=== PATIENT | female | born 1945 | race Caucasian/White ===

== ENCOUNTER 2019-02-01 01:38 | Outpatient (CLI) | payer MEDICARE, MEDICAID ==
[~2019-02-01 01:38] MED LIST: ASPI-1264 PO; ATOR10TA70 PO; ATOR20TA66 PO; BRIM5DRO16 EACHEYE; CALC-212 PO; CLOP75TA15 PO; GLIM4TAB79 PO; LANTUS SUBCUT; METO25TA6 PO; OLME40TA14 PO; TRAV5DRO4 OP; UBID30CA11 PO
== END 2019-02-01 23:59 | disposition home or self-care (01) ==
LOC: DIABETIC 01:38
PROVIDERS: ATTEND Specialist
DX: E11.65 Type 2 diabetes mellitus with hyperglycemia (principal); Z79.4 Long term (current) use of insulin; Z79.84 Long term (current) use of oral hypoglycemic drugs; Z79.899 Other long term (current) drug therapy
CPT/HCPCS: G0108

== ENCOUNTER 2019-04-05 02:15 | Outpatient (CLI) | payer MEDICARE, MEDICAID | END 2019-04-05 23:59 | disposition home or self-care (01) | LOC: DIABETIC 02:15 | PROVIDERS: ATTEND Specialist | DX: E11.65 Type 2 diabetes mellitus with hyperglycemia (principal); I10 Essential (primary) hypertension; Z79.84 Long term (current) use of oral hypoglycemic drugs; Z79.4 Long term (current) use of insulin; Z79.899 Other long term (current) drug therapy | CPT/HCPCS: G0108 ==

== ENCOUNTER 2019-11-28 15:03 | Emergency (ER) | payer MEDICARE, MEDICAID ==
[~2019-11-28] VITALS: Ht 144.8 cm; Wt 83.2 kg
[~2019-11-28 15:03] MED LIST changes: +GLIM4TAB7 PO; -GLIM4TAB79 PO
[2019-11-28] MEDS ORDERED: TETanus/Pertussis (Acell)/Diphther VAC/PF (Tdap-Adult) 0.5ml syringe IMVAC ONE (15:10)
--- NOTE | 2019-11-28 16:31 | NUR ---
Shannon BERMUDEZ AWARE OF HIGH BP, PT DOES NOT KNOW IF SHE TAKES BP MEDS, AND THE MEDS SHE DOES TAKE SHE HASN'T TAKEN FOR ONE WEEK,
[2019-11-28] MEDS ORDERED: cloNIDine 0.1 mg tablet PO ONE (16:40)
--- NOTE | 2019-11-28 17:18 | NUR ---
BP CHECKED 20 MIN AFTER CLONIDINE GIVEN. EFFECTIVE BP 180/73. INFORMED LARA ROSS. STATES, OK TO DC, REMIND PT TO TAKE BP MEDICINE
[2019-11-28 17:19] VITALS: BP 180/73
== END 2019-11-28 17:22 | disposition home or self-care (01) ==
LOC: ER 15:04
DX: S61.511A Laceration without foreign body of right wrist, initial encounter (principal); S81.012A Laceration without foreign body, left knee, initial encounter; S01.81XA Laceration without foreign body of other part of head, initial encounter; I25.10 Atherosclerotic heart disease of native coronary artery without angina pectoris; I10 Essential (primary) hypertension; I25.2 Old myocardial infarction; E11.9 Type 2 diabetes mellitus without complications; F41.9 Anxiety disorder, unspecified; Z98.61 Coronary angioplasty status; Z98.890 Other specified postprocedural states; Z88.0 Allergy status to penicillin; Z88.8 Allergy status to other drugs, medicaments and biological substances; Z79.82 Long term (current) use of aspirin; Z79.4 Long term (current) use of insulin; Z79.899 Other long term (current) drug therapy; W18.39XA Other fall on same level, initial encounter; Y93.89 Activity, other specified; Y92.009 Unspecified place in unspecified non-institutional (private) residence as the place of occurrence of the external cause; Y99.8 Other external cause status
CPT/HCPCS: 12011; 73110; 73564; 90471; 90715; 99284

== ENCOUNTER 2021-03-30 11:02 | Emergency (ER) | payer MEDICARE, MEDICAID ==
[~2021-03-30] VITALS: Ht 144.8 cm; Wt 81.0 kg
[~2021-03-30 11:02] MED LIST changes: +LOP25T PO; -METO25TA6 PO
[2021-03-30 11:26] VITALS: BP 187/7
[2021-03-30 12:15] LABS: CLARITY,URINE SLIGHTLY CLOUDY (Clear); COLOR,URINE YELLOW (Yellow); GLUCOSE, URINE NEGATIVE (Neg); KETONES,URINE NEGATIVE (Neg); LEUKOCYTE ESTERASE ,URINE LARGE (Neg); NITRITES, URINE NEGATIVE (Neg); OCCULT BLOOD,URINE LARGE (Neg); PROTEIN,URINE NEGATIVE (Neg); UROBILINOGEN,URINE 0.2 E.U/dL (0.2-1.0)
[2021-03-30 12:16] LABS: UA COLLECTION TYPE CLN CATCH MIDSTREAM
[2021-03-30 12:25] LABS: SQUAMOUS EPITHELIAL CELL,UR FEW /LPF (FEW)
[2021-03-30 12:27] LABS: BACTERIA,URINE FEW /HPF (Neg); WBC CLUMPS,URINE FEW /HPF (NEGATIVE)
[2021-03-30 12:28] LABS: TRANSITIONAL EPI CELLS,URINE FEW /HPF
[2021-03-30 12:29] LABS: WBC,URINE TNTC /HPF (0-4)
[2021-03-30] MEDS ORDERED: CEPH250T PO (13:07)
== END 2021-03-30 13:35 | disposition home or self-care (01) ==
LOC: ER 11:02
DX: N39.0 Urinary tract infection, site not specified (principal); E86.0 Dehydration; I25.10 Atherosclerotic heart disease of native coronary artery without angina pectoris; I10 Essential (primary) hypertension; I25.2 Old myocardial infarction; E11.9 Type 2 diabetes mellitus without complications; F41.9 Anxiety disorder, unspecified; Z98.890 Other specified postprocedural states; Z88.1 Allergy status to other antibiotic agents; Z88.0 Allergy status to penicillin; Z79.82 Long term (current) use of aspirin; Z79.4 Long term (current) use of insulin; Z79.2 Long term (current) use of antibiotics; Z79.899 Other long term (current) drug therapy
CPT/HCPCS: 81001; 87088; 99283

== ENCOUNTER 2024-05-17 01:54 | Emergency (ER) | payer MEDICARE, MEDICAID ==
[~2024-05-17] VITALS: Ht 172.7 cm; Wt 76.4 kg
[~2024-05-17 01:54] MED LIST changes: -ATOR10TA70 PO; -ATOR20TA66 PO; -BRIM5DRO16 EACHEYE; +BRIM5DRO3 EACHEYE; -CALC-212 PO; +CLOP-32 PO; -CLOP75TA15 PO; +COLLAGEN PROTEIN PO; +DOCU-148 PO; +EMPA25TA PO; +FENO134C22 PO; -GLIM4TAB7 PO; +INSU100I31 SQ; +L.AC1CAP6 PO; -LANTUS SUBCUT; +LISI5TAB22 PO; -LOP25T PO; +LOSA100T58 PO; +METO-395 PO; +METO-539 PO; +MULT-1085 PO; +NETA2.5D EACHEYE; +NITR0.4T51 SL; +NOVLG SQ; -OLME40TA14 PO; +ROSU40TA71 PO; +SEMA0.258 SQ; +SENN-283 PO; -TRAV5DRO4 OP; -UBID30CA11 PO
[2024-05-17 02:00] VITALS: TEMP 97.9
[2024-05-17 02:38] LABS: BASOPHILS % (AUTO) 0.3 % (0-1); EOSINOPHILS # (AUTO) 0.4 X10'3 (0-0.9); EOSINOPHILS % (AUTO) 3.4 % (0-6); HEMATOCRIT 38.9 % (35.0-45.0); HEMOGLOBIN 12.7 g/dl (12.0-16.0); LYMPHOCYTES # (AUTO) 2.5 X10'3 (1.1-4.8); LYMPHOCYTES % (AUTO) 24.2 % (21-51); MEAN CORPUSCULAR HEMOGLOBIN 29.1 PG (27.0-31.0); MEAN CORPUSCULAR HGB CONC 32.5 g/dL (33.0-36.5); MEAN CORPUSCULAR VOLUME 89.5 FL (78-98); MEAN PLATELET VOLUME 7.6 FL (7.4-10.4); MONOCYTES % (AUTO) 9.4 % (2-12); NEUTROPHILS # (AUTO) 6.5 X10'3 (1.8-7.7); NEUTROPHILS % (AUTO) 62.7 % (42-75); PLATELET COUNT 385 X10'3 (140-440); RED BLOOD COUNT 4.34 X10'6 (4.20-5.60); RED CELL DISTRIBUTION WIDTH 13.4 % (11.5-14.5); WHITE BLOOD COUNT 10.4 X10'3 (4.5-11.0)
[2024-05-17 02:55] LABS: ALBUMIN 3.7 G/DL (3.4-5.0); ANION GAP 8 (8-16); BLOOD UREA NITROGEN 37 MG/DL (7-18); BUN/CREATININE RATIO 30.1 (10.0-20.0); CALCIUM 9.4 MG/DL (8.5-10.1); CHLORIDE 103 MMOL/L (99-107); CREATININE 1.23 MG/DL (0.40-0.90); GLUCOSE 188 MG/DL (70-104); PRO BRAIN NATRIURETIC PEPTIDE 470 PG/ML (0-450); SODIUM 138 MMOL/L (135-145); eCRCL 39 ML/MIN; eGFR 42 ML/MIN
[2024-05-17 03:09] LABS: POTASSIUM 5.4 MMOL/L (3.5-5.1)
[2024-05-17] MEDS ORDERED: CLIN-26 PO (03:27)
[2024-05-17] MEDS: ketorolac trometh 30MG/ML vial 30 MG/ML VIAL IM ONE (03:44)
[2024-05-17] MEDS: ketorolac trometh 15mg/ml vial 15 MG/ML ML IV ONE (03:48)
[2024-05-17] MEDS: clindamycin 150mg capsule PO ONE (03:55)
[2024-05-17] MEDS: acetaminophen 325mg tablet PO ONE (03:55)
[2024-05-17 04:00] VITALS: BP 158/66; PULSE 66; RESP 14; O2SAT 99
== END 2024-05-17 04:11 | disposition home or self-care (01) ==
LOC: ER 01:55
DX: K08.89 Other specified disorders of teeth and supporting structures (principal); I10 Essential (primary) hypertension; I25.10 Atherosclerotic heart disease of native coronary artery without angina pectoris; I25.2 Old myocardial infarction; E11.9 Type 2 diabetes mellitus without complications; F41.9 Anxiety disorder, unspecified; Z88.1 Allergy status to other antibiotic agents; Z88.0 Allergy status to penicillin; Z79.82 Long term (current) use of aspirin; Z79.899 Other long term (current) drug therapy; Z79.4 Long term (current) use of insulin; Z86.73 Personal history of transient ischemic attack (TIA), and cerebral infarction without residual deficits; Z90.710 Acquired absence of both cervix and uterus; Z98.890 Other specified postprocedural states; Z95.1 Presence of aortocoronary bypass graft; Z98.61 Coronary angioplasty status
CPT/HCPCS: 36415; 71045; 80048; 83880; 84484; 85025; 93005; 96374; 99285; J1885

== ENCOUNTER 2024-06-20 09:26 | Emergency (ER) | payer MEDICARE, MEDICAID ==
[~2024-06-20] VITALS: Ht 144.8 cm; Wt 66.0 kg
[2024-06-20 10:06] LABS: BASOPHILS # (AUTO) 0.1 X10'3 (0-0.2); BASOPHILS % (AUTO) 0.5 % (0-1); EOSINOPHILS # (AUTO) 0.1 X10'3 (0-0.9); EOSINOPHILS % (AUTO) 1.3 % (0-6); HEMATOCRIT 38.5 % (35.0-45.0); HEMOGLOBIN 12.8 g/dl (12.0-16.0); LYMPHOCYTES # (AUTO) 1.7 X10'3 (1.1-4.8); LYMPHOCYTES % (AUTO) 16.4 % (21-51); MEAN CORPUSCULAR HEMOGLOBIN 29.4 PG (27.0-31.0); MEAN CORPUSCULAR HGB CONC 33.2 g/dL (33.0-36.5); MEAN CORPUSCULAR VOLUME 88.7 FL (78-98); MEAN PLATELET VOLUME 7.5 FL (7.4-10.4); MONOCYTES # (AUTO) 1.2 X10'3 (0-0.9); MONOCYTES % (AUTO) 11.5 % (2-12); NEUTROPHILS # (AUTO) 7.2 X10'3 (1.8-7.7); NEUTROPHILS % (AUTO) 70.3 % (42-75); PLATELET COUNT 399 X10'3 (140-440); RED BLOOD COUNT 4.34 X10'6 (4.20-5.60); RED CELL DISTRIBUTION WIDTH 12.9 % (11.5-14.5); WHITE BLOOD COUNT 10.2 X10'3 (4.5-11.0)
[2024-06-20 10:21] LABS: ALANINE AMINOTRANSFERASE 17 U/L (12-78); ALBUMIN 3.5 G/DL (3.4-5.0); ALBUMIN/GLOBULIN RATIO 0.9 (1.1-1.5); ALKALINE PHOSPHATASE 52 IU/L (46-116); ANION GAP 12 (8-16); ASPARTATE AMINO TRANSFERASE 22 U/L (10-37); BILIRUBIN,TOTAL 0.4 MG/DL (0.1-1.0); BLOOD UREA NITROGEN 34 MG/DL (7-18); BUN/CREATININE RATIO 28.6 (10.0-20.0); CALCIUM 9.3 MG/DL (8.5-10.1); CHLORIDE 104 MMOL/L (99-107); CREATININE 1.19 MG/DL (0.40-0.90); GLUCOSE 180 MG/DL (70-104); LIPASE 24 U/L (16-77); POTASSIUM 4.3 MMOL/L (3.5-5.1); SODIUM 140 MMOL/L (135-145); TOTAL PROTEIN 7.2 G/DL (6.4-8.2); eCRCL 24 ML/MIN; eGFR 44 ML/MIN
[2024-06-20] MEDS: normal saline 1000ML IV soln IVB ONE (13:23)
[2024-06-20] MEDS ORDERED: iohexol 350MG/ML 100ml bottle IV ONE (14:34)
[2024-06-20 14:47] LABS: BILIRUBIN,URINE NEGATIVE (Neg); CLARITY,URINE CLEAR (Clear); COLOR,URINE YELLOW (Yellow); GLUCOSE, URINE >=1000 mg/dl (Neg); KETONES,URINE TRACE mg/dl (Neg); LEUKOCYTE ESTERASE ,URINE NEGATIVE (Neg); NITRITES, URINE NEGATIVE (Neg); OCCULT BLOOD,URINE TRACE-INTACT (Neg); PH,URINE 5.5 (4.8-8.0); PROTEIN,URINE NEGATIVE (Neg); UROBILINOGEN,URINE 0.2 E.U/dL (0.2-1.0)
[2024-06-20 14:48] LABS: UA COLLECTION TYPE CLN CATCH MIDSTREAM
[2024-06-20 14:52] LABS: BACTERIA,URINE 1+ /HPF (Neg); RBC,URINE 0-2 /HPF (0-2); SQUAMOUS EPITHELIAL CELL,UR FEW /LPF (FEW); WBC,URINE 0-4 /HPF (0-4)
[2024-06-20 14:53] LABS: STARCH,URINE FEW /HPF (NEGATIVE)
[2024-06-20] MEDS: ondansetron/PF 4mg/2ml inj IV ONE (15:32)
[2024-06-20] MEDS: morphine 2 MG/ML inj. syringe IV ONE (15:32)
[2024-06-20 16:14] VITALS: BP 184/78; PULSE 97; RESP 16; TEMP 98.1; O2SAT 99
[2024-06-20] MEDS ORDERED: FAMO40TA58 PO (16:18)
[2024-06-20] MEDS ORDERED: METO5TAB98 PO (16:18)
== END 2024-06-20 16:39 | disposition home or self-care (01) ==
LOC: ER 09:27
DX: K21.9 Gastro-esophageal reflux disease without esophagitis (principal); R10.9 Unspecified abdominal pain; I25.10 Atherosclerotic heart disease of native coronary artery without angina pectoris; I10 Essential (primary) hypertension; E11.9 Type 2 diabetes mellitus without complications; F41.9 Anxiety disorder, unspecified; Z88.8 Allergy status to other drugs, medicaments and biological substances; Z88.0 Allergy status to penicillin; Z79.82 Long term (current) use of aspirin; Z79.4 Long term (current) use of insulin; Z98.890 Other specified postprocedural states; Z90.710 Acquired absence of both cervix and uterus
CPT/HCPCS: 36415; 74174; 80053; 81001; 83690; 85025; 93005; 96361; 96374; 96375; 99285; J2270; J2405; J7030; Q9967

== ENCOUNTER 2024-10-23 13:29 | Emergency (ER) | payer MEDICARE, MEDICAID ==
[~2024-10-23] VITALS: Ht 149.9 cm; Wt 50.0 kg
[~2024-10-23 13:29] MED LIST changes: +FAMO40TA58 PO; -ROSU40TA71 PO; +ROSU40TA89 PO
[2024-10-23 14:10] LABS: BASOPHILS # (AUTO) 0.1 X10'3 (0-0.2); BASOPHILS % (AUTO) 0.8 % (0-1); EOSINOPHILS # (AUTO) 0.2 X10'3 (0-0.9); EOSINOPHILS % (AUTO) 1.6 % (0-6); HEMATOCRIT 40.3 % (35.0-45.0); HEMOGLOBIN 13.2 g/dl (12.0-16.0); LYMPHOCYTES # (AUTO) 2.2 X10'3 (1.1-4.8); MEAN CORPUSCULAR HEMOGLOBIN 29.3 PG (27.0-31.0); MEAN CORPUSCULAR HGB CONC 32.7 g/dL (33.0-36.5); MEAN CORPUSCULAR VOLUME 89.4 FL (78-98); MEAN PLATELET VOLUME 7.7 FL (7.4-10.4); MONOCYTES # (AUTO) 0.6 X10'3 (0-0.9); MONOCYTES % (AUTO) 6.3 % (2-12); NEUTROPHILS # (AUTO) 6.5 X10'3 (1.8-7.7); NEUTROPHILS % (AUTO) 68.3 % (42-75); PLATELET COUNT 414 X10'3 (140-440); RED CELL DISTRIBUTION WIDTH 13.1 % (11.5-14.5); WHITE BLOOD COUNT 9.5 X10'3 (4.5-11.0)
[2024-10-23 14:32] LABS: ALANINE AMINOTRANSFERASE 24 U/L (12-78); ALBUMIN 4.1 G/DL (3.4-5.0); ALBUMIN/GLOBULIN RATIO 1.1 (1.1-1.5); ALKALINE PHOSPHATASE 46 IU/L (46-116); ANION GAP 9 (8-16); ASPARTATE AMINO TRANSFERASE 17 U/L (10-37); BILIRUBIN,TOTAL 0.4 MG/DL (0.1-1.0); BLOOD UREA NITROGEN 36 MG/DL (7-18); CALCIUM 9.5 MG/DL (8.5-10.1); CHLORIDE 107 MMOL/L (99-107); GLUCOSE 197 MG/DL (70-104); POTASSIUM 5.1 MMOL/L (3.5-5.1); SODIUM 140 MMOL/L (135-145); TOTAL CARBON DIOXIDE 24.1 MMOL/L (24-32); TOTAL PROTEIN 7.7 G/DL (6.4-8.2); eCRCL 27 ML/MIN; eGFR 44 ML/MIN
[2024-10-23 14:39] LABS: PRO BRAIN NATRIURETIC PEPTIDE 846 PG/ML (0-450)
[2024-10-23 15:30] VITALS: BP 136/85; PULSE 71; RESP 12; O2SAT 100
[2024-10-23 19:15] VITALS: TEMP 98.2
== END 2024-10-23 19:17 | disposition home or self-care (01) ==
LOC: ER 13:30
DX: R07.89 Other chest pain (principal); F41.9 Anxiety disorder, unspecified; I10 Essential (primary) hypertension; E11.9 Type 2 diabetes mellitus without complications; I25.10 Atherosclerotic heart disease of native coronary artery without angina pectoris; Z86.73 Personal history of transient ischemic attack (TIA), and cerebral infarction without residual deficits; Z88.0 Allergy status to penicillin; Z88.1 Allergy status to other antibiotic agents; Z88.8 Allergy status to other drugs, medicaments and biological substances; Z90.710 Acquired absence of both cervix and uterus; Z95.1 Presence of aortocoronary bypass graft; Z95.5 Presence of coronary angioplasty implant and graft; Z98.890 Other specified postprocedural states; Z79.82 Long term (current) use of aspirin
CPT/HCPCS: 36415; 71045; 80053; 83880; 84484; 85025; 93005; 99285

== ENCOUNTER 2024-12-23 05:24 | Inpatient (IN) | payer MEDICARE, MEDICAID ==
[~2024-12-23] VITALS: Ht 144.8 cm; Wt 65.2 kg
[2024-12-23] VITALS (22 sets, daily range): BP systolic 124–179; BP diastolic 43–88; PULSE 68–104; RESP 14–24; TEMP 97.2–97.6; O2SAT 95–99
[2024-12-23] MEDS: nitroGLYCERIN 0.4mg SUBLingual tab SL PRN (06:00)
[2024-12-23] MEDS: nitroGLYCERIN 0.4mg SUBLingual tab SL ONE (06:14)
[2024-12-23 06:23] LABS: BASOPHILS # (AUTO) 0.1 X10'3 (0-0.2); BASOPHILS % (AUTO) 0.8 % (0-1); EOSINOPHILS # (AUTO) 0.2 X10'3 (0-0.9); EOSINOPHILS % (AUTO) 1.3 % (0-6); HEMATOCRIT 42.6 % (35.0-45.0); HEMOGLOBIN 14.4 g/dl (12.0-16.0); LYMPHOCYTES # (AUTO) 4.4 X10'3 (1.1-4.8); LYMPHOCYTES % (AUTO) 31.5 % (21-51); MEAN CORPUSCULAR HEMOGLOBIN 29.8 PG (27.0-31.0); MEAN CORPUSCULAR HGB CONC 33.8 g/dL (33.0-36.5); MEAN CORPUSCULAR VOLUME 88.3 FL (78-98); MEAN PLATELET VOLUME 7.8 FL (7.4-10.4); MONOCYTES # (AUTO) 0.8 X10'3 (0-0.9); MONOCYTES % (AUTO) 6.1 % (2-12); NEUTROPHILS # (AUTO) 8.3 X10'3 (1.8-7.7); NEUTROPHILS % (AUTO) 60.3 % (42-75); PLATELET COUNT 427 X10'3 (140-440); RED BLOOD COUNT 4.82 X10'6 (4.20-5.60); RED CELL DISTRIBUTION WIDTH 13.3 % (11.5-14.5); WHITE BLOOD COUNT 13.8 X10'3 (4.5-11.0)
[2024-12-23 07:02] LABS: ALANINE AMINOTRANSFERASE 25 U/L (12-78); ALBUMIN/GLOBULIN RATIO 1.1 (1.1-1.5); ALKALINE PHOSPHATASE 55 IU/L (46-116); ANION GAP 14 (8-16); ASPARTATE AMINO TRANSFERASE 25 U/L (10-37); BILIRUBIN,TOTAL 0.6 MG/DL (0.1-1.0); BLOOD UREA NITROGEN 30 MG/DL (7-18); BUN/CREATININE RATIO 30.3 (10.0-20.0); CALCIUM 9.6 MG/DL (8.5-10.1); CHLORIDE 104 MMOL/L (99-107); CREATININE 0.99 MG/DL (0.40-0.90); GLUCOSE 159 MG/DL (70-104); POTASSIUM 4.2 MMOL/L (3.5-5.1); SODIUM 139 MMOL/L (135-145); TOTAL CARBON DIOXIDE 21.4 MMOL/L (24-32); TOTAL PROTEIN 7.7 G/DL (6.4-8.2); eCRCL 29 ML/MIN; eGFR 54 ML/MIN
[2024-12-23 07:10] LABS: LIPASE 17 U/L (16-77); PRO BRAIN NATRIURETIC PEPTIDE 1146 PG/ML (0-450)
[2024-12-23] MEDS ORDERED: iohexol 300mg/ml 100ml inj. ONE (07:50)
[2024-12-23] MEDS ORDERED: mag hydrox/Alum hydrox/simeth 30ml oral suspension PO PRN (08:50)
[2024-12-23] MEDS ORDERED: ondansetron/PF 4mg/2ml inj IV PRN (08:50)
[2024-12-23] MEDS ORDERED: magnesium sulf-water 4G/100mL 100 ML IV PRN (08:50)
[2024-12-23] MEDS ORDERED: potassium Cl 40MEQ/1/2NS 520ml 520 ML IV PRN (08:50)
[2024-12-23] MEDS ORDERED: HYDROcodone/acetaminophen 10/325mg tab PO PRN (08:50)
[2024-12-23] MEDS ORDERED: bisacodyl 10mg suppository rectal RC PRN (08:50)
[2024-12-23] MEDS ORDERED: magnesium Cl slow-release 64mg tablet PO PRN (08:50)
[2024-12-23] MEDS ORDERED: magnesium sulf-water 2g/50mL 50 ML IV PRN (08:50)
[2024-12-23] MEDS ORDERED: magnesium hydroxide 30ml (MOM) UD suspension PO PRN (08:50)
[2024-12-23] MEDS ORDERED: morphine 2 MG/ML inj. syringe IV PRN ×2 (08:50)
[2024-12-23] MEDS ORDERED: HYDROcodone/acetaminophen 5mg/325mg tablet PO PRN (08:50)
[2024-12-23] MEDS ORDERED: acetaminophen 325mg tablet PO PRN (08:50)
[2024-12-23] MEDS ORDERED: potassium Cl 20 mEq SR tablet PO PRN ×2 (08:50)
[2024-12-23] MEDS ORDERED: HYDROmorphone inj. 0.5 MG/0.5 ML DISP.SYRIN IV PRN (08:50)
[2024-12-23 09:06] LABS: BILIRUBIN,URINE NEGATIVE (Neg); CLARITY,URINE CLEAR (Clear); COLOR,URINE YELLOW (Yellow); GLUCOSE, URINE >=1000 mg/dl (Neg); KETONES,URINE 15 mg/dl (Neg); LEUKOCYTE ESTERASE ,URINE NEGATIVE (Neg); NITRITES, URINE NEGATIVE (Neg); OCCULT BLOOD,URINE TRACE-INTACT (Neg); PH,URINE 5.5 (4.8-8.0); PROTEIN,URINE NEGATIVE (Neg); UROBILINOGEN,URINE 0.2 E.U/dL (0.2-1.0)
[2024-12-23 09:10] LABS: UA COLLECTION TYPE NON-SPECIFIED
[2024-12-23 09:11] LABS: BACTERIA,URINE NONE SEEN /HPF (Neg); MUCUS STRANDS NONE SEEN /LPF (Neg); RBC,URINE 0-2 /HPF (0-2); SQUAMOUS EPITHELIAL CELL,UR FEW /LPF (FEW); WBC,URINE 0-4 /HPF (0-4)
[2024-12-23 09:14] LABS: APTT 27 SECONDS (22-32); INR 1.1 INR
[2024-12-23] MEDS: aspirin 81mg tab.chew PO ONE (09:14)
[2024-12-23 09:32] LABS: POTASSIUM 4.8 MMOL/L (3.5-5.1)
[2024-12-23 09:33] LABS: HEMOGLOBIN A1C 6.4 % (4.5-6.2)
[2024-12-23] MEDS ORDERED: heparin 10,000 units/1 ML INJ IV ONE (09:45)
[2024-12-23] MEDS ORDERED: heparin 10,000 units/1 ML INJ IV PRN (09:45)
[2024-12-23] MEDS: furosemide 20 MG/2 ML vial IV SCH (10:03)
[2024-12-23] MEDS ORDERED: DEXTROSE 15 GM of carb/4 tabs (each vial/BOTTLE has 4 tablets) PO PRN ×2 (10:15)
[2024-12-23] MEDS ORDERED: glucagon, human recombinant 1mg kit SUBCUT PRN (10:15)
[2024-12-23] MEDS ORDERED: dextrose 50%-water 50ml dispensing syringe IV PRN ×2 (10:15)
[2024-12-23] MEDS: MESSAGE TO NURSING IV ONE ×2 (10:20→10:34)
[2024-12-23] MEDS ORDERED: metoprolol tartrate 1mg/ml inj IV PRN (10:25)
[2024-12-23] MEDS ORDERED: aminophylline 500mg/20ml vial IV PRN (10:25)
[2024-12-23] MEDS ORDERED: nitroGLYCERIN 0.4mg SUBLingual tab SL PRN (10:25)
[2024-12-23] MEDS ORDERED: CLOP75TA34 PO (10:40)
[2024-12-23] MEDS ORDERED: LOSA-415 PO (10:40)
[2024-12-23] MEDS ORDERED: FAMO40TA7 PO (10:45)
[2024-12-23] MEDS ORDERED: MAGN250T11 PO (10:45)
[2024-12-23] MEDS ORDERED: PYRI200T9 PO (10:45)
[2024-12-23] MEDS ORDERED: ASPI-83 (10:45)
[2024-12-23] MEDS ORDERED: EZET10TA48 PO (10:45)
[2024-12-23] MEDS ORDERED: INSU100V40 SQ ×3 (10:48→10:51)
[2024-12-23] MEDS ORDERED: BRIM5DRO6 EACHEYE (10:52)
[2024-12-23 10:55] LABS: BASOPHILS # (AUTO) 0.1 X10'3 (0-0.2); BASOPHILS % (AUTO) 0.6 % (0-1); EOSINOPHILS % (AUTO) 0.2 % (0-6); HEMATOCRIT 40.5 % (35.0-45.0); HEMOGLOBIN 13.8 g/dl (12.0-16.0); LYMPHOCYTES # (AUTO) 1.8 X10'3 (1.1-4.8); LYMPHOCYTES % (AUTO) 15.2 % (21-51); MEAN CORPUSCULAR VOLUME 88.3 FL (78-98); MEAN PLATELET VOLUME 7.8 FL (7.4-10.4); MONOCYTES # (AUTO) 0.6 X10'3 (0-0.9); MONOCYTES % (AUTO) 5.3 % (2-12); NEUTROPHILS # (AUTO) 9.2 X10'3 (1.8-7.7); NEUTROPHILS % (AUTO) 78.7 % (42-75); PLATELET COUNT 362 X10'3 (140-440); RED BLOOD COUNT 4.59 X10'6 (4.20-5.60); WHITE BLOOD COUNT 11.7 X10'3 (4.5-11.0)
[2024-12-23] MEDS ORDERED: LOP12.5T PO (10:55)
[2024-12-23] MEDS: metoprolol tartrate 25mg tablet PO ONE (11:28)
[2024-12-23] MEDS: heparin 25,000 UNIT/250ml bag 250 ML IV PRN (11:39)
[2024-12-23] MEDS: heparin 10,000 units/1 ML INJ IV ONE (11:41)
[2024-12-23] MEDS: INSULIN LISPRO 100 UNIT/ML INSULN.PEN MULTI-DOSE SQ SCH (12:00)
[2024-12-23] MEDS: regadenoson 0.4mg/5ml syringe IV PRN (12:01)
[2024-12-23] MEDS: metoprolol succinate 25mg (24-HOUR) SR. Tablet PO SCH (12:15)
[2024-12-23] MEDS: clopidogrel 75mg tablet PO SCH (13:49)
[2024-12-23] MEDS: ezetimibe 10mg tablet PO SCH (13:50)
[2024-12-23] MEDS ORDERED: heparin, porcine 5000 units/ml vial SQ SCH (20:00)
[2024-12-23] MEDS: K and/or MAG REPLACEMENT MC SCH (20:00)
[2024-12-23] MEDS: isosorbide mononitrate 30mg tab.SR.24H PO SCH (20:49)
[2024-12-23] MEDS: docusate sod 100mg capsule PO SCH (20:49)
[2024-12-23] MEDS: brimonidine 0.2% 5 ML ophthalmic drops EACHEYE SCH (20:50)
[2024-12-23] MEDS: famotidine 20mg tablet PO SCH (20:50)
[2024-12-23] MEDS: atorvastatin 20mg tablet PO SCH (20:50)
[2024-12-23] MEDS: Fenofibrate,Micronized 134 MG CAPSULE PO SCH (20:54)
[2024-12-23] MEDS: insulin glargine (Lantus) pen - multi-dose SQ SCH (20:54)
[2024-12-24 02:00] VITALS: BP 130/55; PULSE 74; RESP 16; TEMP 97.6; O2SAT 97
[2024-12-24 06:00] VITALS: BP 118/47; PULSE 85; RESP 16; TEMP 97.1; O2SAT 97
[2024-12-24 06:29] LABS: BASOPHILS # (AUTO) 0.1 X10'3 (0-0.2); BASOPHILS % (AUTO) 0.7 % (0-1); EOSINOPHILS # (AUTO) 0.3 X10'3 (0-0.9); EOSINOPHILS % (AUTO) 2.9 % (0-6); HEMATOCRIT 36.4 % (35.0-45.0); HEMOGLOBIN 12.5 g/dl (12.0-16.0); LYMPHOCYTES # (AUTO) 2.2 X10'3 (1.1-4.8); LYMPHOCYTES % (AUTO) 25.3 % (21-51); MEAN CORPUSCULAR HEMOGLOBIN 30.3 PG (27.0-31.0); MEAN CORPUSCULAR HGB CONC 34.4 g/dL (33.0-36.5); MEAN CORPUSCULAR VOLUME 88.2 FL (78-98); MEAN PLATELET VOLUME 7.6 FL (7.4-10.4); MONOCYTES % (AUTO) 10.9 % (2-12); NEUTROPHILS # (AUTO) 5.3 X10'3 (1.8-7.7); NEUTROPHILS % (AUTO) 60.2 % (42-75); PLATELET COUNT 309 X10'3 (140-440); RED BLOOD COUNT 4.12 X10'6 (4.20-5.60); RED CELL DISTRIBUTION WIDTH 12.5 % (11.5-14.5); WHITE BLOOD COUNT 8.8 X10'3 (4.5-11.0)
[2024-12-24 06:53] LABS: ALANINE AMINOTRANSFERASE 18 U/L (12-78); ALBUMIN 3.3 G/DL (3.4-5.0); ALBUMIN/GLOBULIN RATIO 1.1 (1.1-1.5); ALKALINE PHOSPHATASE 43 IU/L (46-116); ANION GAP 9 (8-16); ASPARTATE AMINO TRANSFERASE 20 U/L (10-37); BILIRUBIN,TOTAL 0.6 MG/DL (0.1-1.0); BLOOD UREA NITROGEN 31 MG/DL (7-18); CALCIUM 8.7 MG/DL (8.5-10.1); CHLORIDE 104 MMOL/L (99-107); CHOL/HDL RATIO 1.9 (0.00-4.99); CHOLESTEROL 101 MG/DL (0-200); CREATININE 1.07 MG/DL (0.40-0.90); GLUCOSE 150 MG/DL (70-104); HDL CHOLESTEROL 52 MG/DL (35-60); LDL CHOLESTEROL 35 MG/DL (50-100); MAGNESIUM 1.9 MG/DL (1.5-2.4); POTASSIUM 3.7 MMOL/L (3.5-5.1); SODIUM 138 MMOL/L (135-145); TOTAL CARBON DIOXIDE 25.3 MMOL/L (24-32); TOTAL PROTEIN 6.3 G/DL (6.4-8.2); TRIGLYCERIDES 103 MG/DL (20-135); eCRCL 26 ML/MIN; eGFR 50 ML/MIN
[2024-12-24] MEDS ORDERED: FURO-150 PO (07:34)
[2024-12-24] MEDS ORDERED: ISOS30TA84 PO (07:34)
[2024-12-24 08:00] VITALS: RESP 16; O2SAT 97
[2024-12-24 11:00] VITALS: BP 101/64; PULSE 90; RESP 24; TEMP 97.1; O2SAT 97
[2024-12-25] MEDS ORDERED: EMPAGLIFLOZIN 25 MG TABLET PO SCH (08:00)
== END 2024-12-24 13:45 | disposition home or self-care (01) | DRG 303 ==
LOC: ER 05:25 → ED HOLD 08:51 → PCU 3S 11:12
PROVIDERS: ADMIT Internal Medicine; ATTEND Internal Medicine
PROC: 4A02XM4 Measurement of Cardiac Total Activity, External Approach (ICD-10-PCS; principal; 2024-12-23)
PROC: 3E073KZ Introduction of Other Diagnostic Substance into Coronary Artery, Percutaneous Approach (ICD-10-PCS; 2024-12-23)
DX: I25.110 Atherosclerotic heart disease of native coronary artery with unstable angina pectoris (principal); I50.32 Chronic diastolic (congestive) heart failure; E11.9 Type 2 diabetes mellitus without complications; E78.5 Hyperlipidemia, unspecified; F41.9 Anxiety disorder, unspecified; I11.0 Hypertensive heart disease with heart failure; Z88.2 Allergy status to sulfonamides; Z90.710 Acquired absence of both cervix and uterus; Z95.1 Presence of aortocoronary bypass graft; Z95.5 Presence of coronary angioplasty implant and graft
CPT/HCPCS: 36415; 71045; 76700; 78452; 80053; 80061; 81001; 82948; 83036; 83690; 83735; 83880; 84132; 84484; 85025; 85610; 85730; 87081; 93005; 93017; 93306; 96365; 96375; 96376; 99291; A6258; A9500; G0378; J1644; J1815; J1940; J2785; Q9967

== ENCOUNTER 2025-06-10 09:18 | Emergency (ER) | payer MEDICARE, MEDICAID ==
[~2025-06-10] VITALS: Ht 160 cm; Wt 72.7 kg
[~2025-06-10 09:18] MED LIST changes: -ASPI-1264 PO; +ASPI-83 PO; -BRIM5DRO3 EACHEYE; +BRIM5DRO32 EACHEYE; -CLOP-32 PO; -COLLAGEN PROTEIN PO; -DOCU-148 PO; +EZET10TA48 PO; -FAMO40TA58 PO; +FAMO40TA7 PO; +FURO20TA4 PO; -INSU100I31 SQ; +INSU100I8 SQ; -L.AC1CAP6 PO; -LISI5TAB22 PO; -LOSA100T58 PO; +MAGN250T11 PO; -METO-539 PO; -MULT-1085 PO; -NETA2.5D EACHEYE; -NITR0.4T51 SL; -NOVLG SQ; +PYRI-3 PO; -SEMA0.258 SQ; -SENN-283 PO
--- NOTE | 2025-06-10 09:29 | ELECTROCARDIOGRAPH REPORT ---
[facility] Test Date: 2025-06-10 Test Time: 09:28:35 Pat Name: JERMAIN BEASLEY Department: [facility]- Patient ID: [facility]-[id number] Room: Gender: F Offset [employer] Operator: : 1945 Requested By: GELA CRAMER Order Number: [id number] Reading MD: Measurements Intervals [place] Rate: 136 P: 0 TX: 64 QRS: 175 QRSD: 143 T: 6 QT: 337 QTc: 507 Interpretive Statements Sinus tachycardia RBBB and LPFB Please click the below link to view image of tracing.
--- NOTE | 2025-06-10 10:58 | RADIOLOGY REPORT ---
AP portable chest CLINICAL INDICATION: CP Comparison: 06/01/2025 FINDINGS: Heart size is enlarged. Bilateral subpulmonic pleural effusions with atelectasis of underlying lung. IMPRESSION: 1. Signs of pulmonary edema with bilateral subpulmonic pleural effusions
[2025-06-10 11:09] LABS: MEAN PLATELET VOLUME 6.9 FL (7.4-10.4)
[2025-06-10 11:10] LABS: RED CELL DISTRIBUTION WIDTH 15.4 % (11.5-14.5)
--- NOTE | 2025-06-10 11:26 | Physician Documentation ---
History of Present Illness ~ Chief Complaint: Leg Pain Stated Complaint: INFECTION IN LEG Time Seen by MD: 10:53 Primary Medical Doctor: SACHA DELANEY Mode of Arrival: POV, Dropped Off HPI 79-year-old female, history of recent CABG, who presents with concern for an infection to her right leg She tells me that she had a CABG about 2 weeks ago, with Dr. Lewis. She presents today mainly concerned that she may have an infection in her right leg at the site of the vein harvest. She reports having drainage of pus, which she describes as a clear yellowish fluid. She states it was just running down her leg. She does have some mild pain in the leg. This is located on the medial right calf. No fevers or chills or other infectious type symptoms. She does appear short of breath at rest. She tells me she has not been able to sleep at night because she gets so short of breath that she can not lay flat and gets very anxious. She is short of breath with minimal exertion. She denies any chest pain other than pain at the surgical site. Tetanus witin 5 years: Yes Medication Reconciliation Allergies: Coded Allergies: Metronidazole HCl (Verified Allergy, Unknown, dizzy, 06/10/25) Penicillins (Verified Allergy, Unknown, 06/10/25) >5 years, pale/dizzy, no treatment metronidazole (Verified Allergy, Unknown, dizzy, 06/10/25) Uncoded Allergies: SULFA (Allergy, Unknown, 06/07/16) Scheduled Aspirin (Derrek Aspirin), 1 TAB PO DAILY, (Reported) Brimonidine Tartrate (Brimonidine Tartrate), 1 DROP EACHEYE BID, (Reported) Empagliflozin (Jardiance), 1 TAB PO Q48H, (Reported) Ezetimibe (Ezetimibe), 1 TAB PO DAILY, (Reported) Famotidine (Famotidine), 1 TAB PO HS, (Reported) Fenofibrate,Micronized (Fenofibrate), 1 CAP PO HS, (Reported) Furosemide (Furosemide), 1 TAB PO DAILY, (Reported) Furosemide (Lasix), 1 TAB PO DAILY Insulin Lispro (Humalog), 8 UNITS SQ TID, (Reported) Magnesium Oxide (Magnesium), 1 TAB PO DAILY, (Reported) Metoprolol Succinate (Metoprolol Succinate), 1 TAB PO DAILY, (Reported) Pyridoxine Hcl (Vitamin B-6), 2 TAB PO DAILY, (Reported) Rosuvastatin Calcium (Rosuvastatin Calcium), 1 TAB PO HS, (Reported) Discontinued Medications Clopidogrel Bisulfate (Clopidogrel), 1 TAB PO DAILY, (Reported) Isosorbide Mononitrate (Isosorbide Mononitrate Er), 1 TAB PO DAILY, (Reported) Nitroglycerin (Nitroglycerin), 1 TAB SL Q5MINS PRN for Chest pain Q5min PRNx3- call MD, (Reported) Past Medical History Past Medical History: CVA/TIA/Stroke, Coronary Artery Disease, Hypertension, Myocardial Infarction, Diabetes, Anxiety Past Surgical History: angioplasty, , hysterectomy, tonsillectomy, other Patient History: (CABG) Coronary artery bypass grafting MOTHER (CAD) Coronary arteriosclerosis MOTHER (OR) Myocardial infarction FATHER, Onset:60 years & older Alzheimer's disease Ankylosing spondylitis son Osteoarthritis son Alcohol Use: None Drug Use: none Lives with: Mother Lives In: Home Occupation: employed Past Social History: single Review of Systems Constitutional: Denies: fever Respiratory: Reports: shortness of breath, SOB with exertion Cardiovascular: Denies: chest pain Integumentary: Reports: wound(s) Physical Exam Vital Signs: Temperature: 98.4, Source: Temporal, Heart Rate: 130, Respiratory Rate: 22, BP: 155/79, Pulse Oximetry: 98, Weight: 72.730 Oxygen Flow Rate: 0 Physical Exam General: This is a chronically ill-appearing older woman, appears short of breath arrest HEENT: Atraumatic, oropharynx appears dry Heart: Tachycardia, heart rate in the 130s, appears regular on palpation Lungs: Severely diminished breath sounds bilateral, with some scattered crackles Extremities: Mild edema to both calves. Right lower extremity: The patient has a postsurgical wound with sutures in the medial distal thigh, without surrounding erythema or drainage. Over the medial lower leg, there are several small areas of erythema, with some drainage of clear straw-colored fluid. No significant surrounding erythema. Mild tenderness at the sites. Neuro: Alert and oriented Psychiatric: Appears tired, but is cooperative with exam Progress Results/Orders Results/Orders Orders - GELA CRAMER MD Chest,Single View (06/10/25 10:23) Monitor (06/10/25 10:23) Saline Lock (06/10/25 10:23) Oxygen (06/10/25 10:23) Completed Orders - GELA CRAMER MD Electrocardiogram (06/10/25 ) Chest,Single View (06/10/25 10:23) Cbc/Diff (06/10/25 10:23) BMP (06/10/25 10:23) PBNP (06/10/25 10:23) Hs Troponin I W Calculations (06/10/25 10:23) Lactic,2hr (06/10/25 10:23) Furosemide Inj (Lasix Inj) (06/10/25 11:50) Furosemide 40mg Inj (Lasix Inj) (06/10/25 11:50) Medications Received in ER Medications (Trade) Dose Ordered Sig/Alpa Route PRN Reason Start Time Stop Time Status Last Admin Dose Admin (Lasix inj) 40 mg ONCE ONCE IV 06/10/25 11:50 06/10/25 11:51 DC 06/10/25 11:57 40 MG Vital Signs 06/10/25 06/10/25 06/10/25 06/10/25 09:19 10:07 10:18 11:26 Temp 98.4 98.4 98.4 Pulse 130 130 137 Resp 16 25 22 29 B/P (MAP) 156/94 155/79 (104) 153/84 (107) Pulse Ox 95 98 98 O2 Flow Rate 0 0 0 Laboratory Tests Test 06/10/25 11:00 White Blood Count 18.2 H Red Blood Count 3.60 L Hemoglobin 10.7 L Hematocrit 33.0 L Mean Corpuscular Volume 91.5 Mean Corpuscular Hemoglobin 29.8 Mean Corpuscular Hemoglobin Concent 32.5 L Red Cell Distribution Width 15.4 H Platelet Count 711 H Mean Platelet Volume 6.9 L Neutrophils (%) (Auto) 88.8 H Lymphocytes (%) (Auto) 4.6 L Monocytes (%) (Auto) 5.9 Eosinophils (%) (Auto) 0.4 Basophils (%) (Auto) 0.3 Neutrophils # (Auto) 16.2 H Lymphocytes # (Auto) 0.8 L Monocytes # (Auto) 1.1 H Eosinophils # (Auto) 0.1 Basophils # (Auto) 0.1 CBC Comment Sodium Level 136 Potassium Level 4.3 Chloride Level 100 Carbon Dioxide Level 24.9 Anion Gap 11 Blood Urea Nitrogen 21 H Creatinine 0.91 H Estimated GFR/1.73 m2 60 BUN/Creatinine Ratio 23.1 H Glucose Level 155 H Lactic Acid Level 1.6 Calcium Level 8.7 Troponin I High Sensitivity 150 *H Pro-B-Type Natriuretic Peptide 6376 H Albumin 2.9 L Chemistry Comments EKG/XRAY/CT/US/VASC/MRI EKG : Additional Comment I personally interpreted the EKG and this shows: Sinus tachycardic, right bundle branch block, rate 136, QTC 507 Chest X-Ray : Additional Comments I personally interpreted the x-ray, and it shows: Bilateral pleural effusions with pulmonary edema, no pneumothorax Medical Decision Making Additional Comment Differential diagnosis includes Pulmonary edema, pleural effusions, congestive heart failure, OR, pericardial effusion, electrolyte derangement, renal failure, cellulitis Assessment The patient presents with concern for fluid leaking from her leg. On exam this appears to be serous fluid, does not appear consistent with cellulitis or an abscess. However, she is also noted to be tachycardic and short of breath. Her workup shows findings concerning for congestive heart failure related to her recent surgery. This includes pulmonary edema, lower extremity edema, and exertional shortness of breath. I had a long discussion with the patient and her daughter. I recommended admission for diuresis and medication adjustment. However, the patient declined admission. I had a 2nd long discussion with her, trying to convince her to stay and be admitted to the hospital, but she declined again. She will be discharged with a prescription for Lasix and instructions to likely increase her metoprolol dose. I am very concerned about her heart condition and potential for worsening shortness of breath and volume overload. I explained all this to the patient and her daughter. They will contact her cardiology clinic and primary care clinic tomorrow, to try to arrange close follow up for medication adjustment and further blood testing. I begged her to please return to the ER if she develops worsening shortness of breath or other symptoms. Departure Time of Disposition: 11:57 Disposition: 01 HOME / SELF CARE / HOMELESS Impression: Primary Impression: Pulmonary edema Additional Impressions: Shortness of breath Tachycardia Condition: Guarded Discharge Instructions: Heart Failure, Diagnosis, [id number] Referrals: NO PRIMARY CARE PROVIDER (PCP) Prescriptions Furosemide (LASIX) 20 Mg Tablet 1 TAB PO DAILY for 30 Days, #30 TAB 0 Refills Prov: GELA CRAMER MD 06/10/25 Education Educated: Patient, Family Educated regarding: diagnosis, treatment, need for follow up Signature Scribe Signature: na Attestation: GELA Peace MD Jun 10, 2025 11:26
[2025-06-10 11:29] LABS: CREATININE 0.91 MG/DL (0.40-0.90); PRO BRAIN NATRIURETIC PEPTIDE 6376 PG/ML (0-450); TOTAL CARBON DIOXIDE 24.9 MMOL/L (24-32); eCRCL 42 ML/MIN; eGFR 60 ML/MIN
[2025-06-10] MEDS ORDERED: furosemide 10 MG/1 ML 10ml inj IV ONE (11:50)
[2025-06-10] MEDS ORDERED: FURO-150 PO (11:59)
[2025-06-10 12:07] VITALS: BP 153/84; PULSE 125; RESP 25; TEMP 98.4; O2SAT 99
[2025-06-11] MEDS ORDERED: FAMO20TA8 PO (15:07)
== END 2025-06-10 12:20 | disposition home or self-care (01) ==
LOC: ER 09:18
DX: J81.1 Chronic pulmonary edema (principal); R06.02 Shortness of breath; R00.0 Tachycardia, unspecified; I10 Essential (primary) hypertension; I25.10 Atherosclerotic heart disease of native coronary artery without angina pectoris; I25.2 Old myocardial infarction; E11.9 Type 2 diabetes mellitus without complications; F41.9 Anxiety disorder, unspecified; Z86.73 Personal history of transient ischemic attack (TIA), and cerebral infarction without residual deficits; Z88.1 Allergy status to other antibiotic agents; Z88.0 Allergy status to penicillin; Z90.710 Acquired absence of both cervix and uterus; Z95.1 Presence of aortocoronary bypass graft; Z79.82 Long term (current) use of aspirin; Z79.4 Long term (current) use of insulin; Z79.899 Other long term (current) drug therapy
CPT/HCPCS: 71045; 80048; 83605; 83880; 84484; 85025; 93005; 96374; 99285; A6446; J1938

== ENCOUNTER 2025-07-02 16:47 | Emergency (ER) | payer MEDICARE, MEDICAID ==
[~2025-07-02] VITALS: Ht 160 cm; Wt 80.0 kg
[~2025-07-02 16:47] MED LIST changes: +APIX5TAB3 PO; +ASPI-1397 PO; -ASPI-83 PO; +CARSR60C PO; +EMPA10TA PO; -EMPA25TA PO; -EZET10TA48 PO; +EZET10TA80 PO; +FAMO20TA8 PO; -FAMO40TA7 PO; -INSU100I8 SQ; +LOP25T PO; +LUTE1CAP5 PO; -MAGN250T11 PO; -METO-395 PO; +PANT40TA54 PO; -PYRI-3 PO
[2025-07-02 16:48] VITALS: TEMP 98.5
--- NOTE | 2025-07-02 16:52 | ELECTROCARDIOGRAPH REPORT ---
[facility] Test Date: 2025-07-02 Test Time: 16:50:06 Pat Name: JERMAIN BEASLEY Department: EMERGENCY ROOM Room: Gender: F Alumni Coordinator: RAFAEL : 1945 Requested By: BEATRICE REYNA Order Number: [id number] Reading MD: Measurements Intervals [place] Rate: 97 P: 0 [place]: 0 QRS: 81 QRSD: 88 T: -28 QT: 353 QTc: 449 Interpretive Statements Atrial flutter Borderline right axis deviation Borderline repolarization abnormality Minimal ST elevation, lateral leads Please click the below link to view image of tracing.
--- NOTE | 2025-07-02 17:13 | Physician Documentation ---
Addendum CHIEF COMPLAINT/HPI: The patient is a 71-year-old female with recent history of CABG on 05/30/25 and subsequent bilateral pleural effusions, atrial fibrillation, CVA REVIEW OF SYSTEMS: Constitutional: Denies chills, fatigue, fever, weight gain or weight loss. HEENT: Denies hearing loss, sinus pressure or visual changes. Respiratory: Mild shortness of breath. Cardiovascular: Denies chest pain, pain while walking (claudication), edema or palpitations. Gastrointestinal: Denies abdominal pain, blood in stool, constipation, diarrhea, heartburn, loss of appetite, nausea or vomiting. Genitourinary: Denies painful urination (dysuria), excessive amount of urine (polyuria) or urinary frequency. Metabolic/Endocrine: Denies cold intolerance, heat intolerance, excessive thirst (polydipsia) or excessive hunger (polyphagia). Neurological: Denies dizziness, extremity numbness, extremity weakness, headaches, seizures or tremors. Psychiatric: Anxious. Musculoskeletal: Denies back pain, joint pain, joint swelling or neck pain. PHYSICAL EXAMINATION: Vitals and nursing note reviewed. Constitutional: General: Patient is awake, alert, oriented x 4 in no acute distress and well appearing. Speech is clear and lucid. Appearance: Normal appearance. Patient is not ill-appearing, toxic-appearing or diaphoretic. HENT: Head: Normocephalic and atraumatic. Mouth/Throat: Mouth: Mucous membranes are moist. Pharynx: Oropharynx is clear. Eyes: General: No scleral icterus. Extraocular Movements: Extraocular movements intact. Pupils: Pupils are equal, round, and reactive to light. Neck: Supple, no Kernig or Brudzinski sign. Cardiovascular: Rate and Rhythm: Normal rate and regular rhythm. Heart sounds: No murmur heard. Pulmonary: Effort: No respiratory distress. Breath sounds: No wheezing, rhonchi or rales. Abdominal: General: There is no distension. Palpations: There is no fluid wave, hepatomegaly or mass. Tenderness: There is no abdominal tenderness. There is no guarding. Musculoskeletal: General: No swelling or deformity. Skin: Coloration: Skin is not jaundiced. Findings: No erythema or rash. Neurological: Mental Status: Patient is alert. MEDICAL DECISION MAKIN:50 p.m.: The patient has decided to sign out against medical advice. This patient is choosing to leave AGAINST MEDICAL ADVICE. I personally explained to her that choosing to do so may result in worsening of symptoms, permanent disability, or even . I discussed at great length that without further evaluation and monitoring there may be unforeseen circumstances and/or deter ioration causing permanent bodily harm or as a result of this choice. Patient is alert, oriented x 4, and shows the mental capacity to state back to me in their own words the risks involved with leaving against medical advice at this time, demonstrating they are making clear decisions regarding their healthcare at this time. Patient continues to wish to leave AGAINST MEDICAL ADVICE. In light of this decision to leave AGAINST MEDICAL ADVICE, patient has been instructed to obtain close follow-up with their primary care physician and they state that they are aware of the importance of obtaining following up as instructed. Patient has been advised that they should return to the Emergency Department immediately if they change their mind at any time and would like to complete the rest of their evaluation, or if the condition begins to change or worsen in any way. Departure Disposition: 07 LEFT AGAINST MEDICAL ADVICE Impression: Primary Impression: Left against medical advice Condition: BEATRICE Moreno MD Jul 02, 2025 17:13
[2025-07-02 17:16] LABS: MEAN PLATELET VOLUME 7.1 FL (7.4-10.4); RED CELL DISTRIBUTION WIDTH 16.3 % (11.5-14.5)
--- NOTE | 2025-07-02 17:31 | RADIOLOGY REPORT ---
CHEST RADIOGRAPH Indication: CP Technique: DI CHEST,SINGLE VIEW COMPARISON: None FINDINGS: The cardiac silhouette is enlarged. The lungs demonstrate bilateral patchy airspace opacities. The pulmonary vasculature is prominent. Large left and moderate right pleural effusions. There is no pneumothorax. Aortic atherosclerotic disease. IMPRESSION: Cardiomegaly with pulmonary vascular congestion and bilateral patchy airspace opacities. Large left and moderate right pleural effusions
[2025-07-02 17:36] VITALS: BP 118/54; PULSE 88; RESP 22; O2SAT 98
[2025-07-02 17:38] LABS: CREATININE 1.68 MG/DL (0.40-0.90); PRO BRAIN NATRIURETIC PEPTIDE 4668 PG/ML (0-450); TOTAL CARBON DIOXIDE 33.7 MMOL/L (24-32); eCRCL 23 ML/MIN; eGFR 29 ML/MIN
== END 2025-07-02 17:59 | disposition left against medical advice (07) ==
LOC: ER 16:48
DX: R06.02 Shortness of breath (principal); I48.91 Unspecified atrial fibrillation; Z86.73 Personal history of transient ischemic attack (TIA), and cerebral infarction without residual deficits; Z95.1 Presence of aortocoronary bypass graft
CPT/HCPCS: 36415; 71045; 80048; 83880; 84484; 85025; 93005; 99285

== ENCOUNTER 2025-07-10 10:30 | Outpatient (CLI) | payer MEDICARE, MEDICAID ==
--- NOTE | 2025-07-10 12:17 | RADIOLOGY REPORT ---
CHEST RADIOGRAPH Indication: RECURRENT PLEURAL EFFUSIONS Technique: Frontal and lateral view of the chest was obtained Comparison: DI CHEST,SINGLE VIEW on DOS: 07/02/25, CT CT CHEST on DOS: 06/27/25, DI CHEST,SINGLE VIEW on DOS: 06/27/25, DI CHEST,SINGLE VIEW on DOS: 06/25/25, DI CHEST,SINGLE VIEW on DOS: 06/15/25 FINDINGS: Lines and Tubes: Median sternotomy Lungs: Congestion Pleura: Small to moderate bilateral pleural effusions No pneumothorax. Cardiomediastinal contours: Unremarkable Bones: Unremarkable IMPRESSION: Unchanged pulmonary edema
== END 2025-07-10 23:59 | disposition home or self-care (01) ==
LOC: RAD 10:30
PROVIDERS: ATTEND Physician Assistant
DX: J90 Pleural effusion, not elsewhere classified (principal); J81.1 Chronic pulmonary edema
CPT/HCPCS: 71046